=== PATIENT | male | born 1950 | race Two or more races ===

== ENCOUNTER 2021-03-19 06:00 | Day surgery (SDC) | payer OTHER ==
[~2021-03-19 06:00] MED LIST: CIPRO500 MG PO; LEVSIN0.125 MG PO; ZANTAC300 MG PO; ZOFRAN4 MG PO
== END 2021-03-19 11:35 | disposition home or self-care (01) ==
LOC: AMB-ENDOS 06:00
PROVIDERS: ATTEND Surgery
DX: D12.2 Benign neoplasm of ascending colon (principal); Z20.822 Contact with and (suspected) exposure to COVID-19

== ENCOUNTER 2021-04-24 07:47 | Outpatient (CLI) | payer OTHER ==
[2021-04-25] MEDS ORDERED: [UNRECOGNIZED DRUG - OTHER] PO (13:17)
[2021-04-25] MEDS ORDERED: ZESTRIL5 MG PO (13:18)
[2021-04-25] MEDS ORDERED: PROSCAR5 MG PO (13:18)
[2021-04-25] MEDS ORDERED: XELPROS2.5 ML OP (13:19)
== END 2021-04-24 07:53 | disposition home or self-care (01) ==
LOC: LAB 07:47
PROVIDERS: ATTEND General Practice
DX: D12.2 Benign neoplasm of ascending colon (principal); K57.30 Diverticulosis of large intestine without perforation or abscess without bleeding; D37.4 Neoplasm of uncertain behavior of colon

== ENCOUNTER 2021-04-25 10:15 | Inpatient (IN) | payer OTHER ==
[~2021-04-25] VITALS: Ht 172.7 cm; Wt 72.6 kg
[2021-04-25] MEDS ORDERED: [UNRECOGNIZED DRUG - OTHER] PO (13:17)
[2021-04-25] MEDS ORDERED: PROSCAR5 MG PO (13:18)
[2021-04-25] MEDS ORDERED: ZESTRIL5 MG PO (13:18)
[2021-04-25] MEDS ORDERED: XELPROS2.5 ML OP (13:19)
[2021-04-27] MEDS ORDERED: BACTRIM DS TAB1 EACH (15:54)
== END 2021-05-03 14:27 | disposition home or self-care (01) | DRG 331 ==
LOC: SURH 04-27 07:00 → O/R 04-27 08:38 → SURH 04-27 08:38
PROVIDERS: ADMIT Surgery; ATTEND Surgery
PROC: 07BB4ZZ Excision of Mesenteric Lymphatic, Percutaneous Endoscopic Approach (ICD-10-PCS; 2021-04-27)
PROC: 0DTF4ZZ Resection of Right Large Intestine, Percutaneous Endoscopic Approach (ICD-10-PCS; principal; 2021-04-27 07:00)
DX: D12.2 Benign neoplasm of ascending colon (principal); K57.30 Diverticulosis of large intestine without perforation or abscess without bleeding; R59.0 Localized enlarged lymph nodes; I10 Essential (primary) hypertension; Z20.822 Contact with and (suspected) exposure to COVID-19

== ENCOUNTER 2024-03-05 08:11 | Emergency (ER) | payer OTHER ==
[~2024-03-05] VITALS: Ht 172.7 cm; Wt 77.1 kg
[~2024-03-05 08:11] MED LIST changes: +BACTRIM DS TAB1 EACH; +PROSCAR5 MG PO; +XELPROS2.5 ML OP; +ZESTRIL5 MG PO; +[UNRECOGNIZED DRUG - OTHER] PO
[2024-03-05] MEDS ORDERED: KETOROLAC TROMETHAMINE 60 MG VIAL IM ONE (09:15)
[2024-03-05] MEDS ORDERED: DOLOGESIC-DF 51 EACH PO (11:26)
[2024-03-05] MEDS ORDERED: PEPCID AC20 MG PO (11:26)
[2024-03-05] MEDS ORDERED: MONODOX100 MG PO (11:26)
[2024-03-05] MEDS ORDERED: CEFTRIAXONE SODIUM 1,000 MG VIAL IM ONE (11:30)
== END 2024-03-05 12:19 | disposition home or self-care (01) ==
LOC: ER 08:13
DX: N50.812 Left testicular pain (principal); N45.1 Epididymitis; I10 Essential (primary) hypertension
CPT/HCPCS: 76870; 96372; 99284; J0696; J1885